=== PATIENT | female | born 1955 | race Caucasian/White ===

== ENCOUNTER 2017-05-18 14:19 | Day surgery (SDC) | payer BC ==
[~2017-05-18] VITALS: Ht 162.6 cm; Wt 123.4 kg
[~2017-05-18 14:19] MED LIST: GUMMI BEAR MUL1 EACH PO; HYZAAR 100-11 TABLET PO
[2017-05-18 14:42] VITALS: BP 139/54
[2017-05-18] MEDS ORDERED: ALEVE220 M2 PO (14:55)
[2017-05-18 15:04] VITALS: BP 139/54
[2017-05-18] MEDS ORDERED: HYDROCODON-ACE1 EAC7 PO (17:12)
[2017-05-18 17:35] VITALS: BP 171/73
[2017-05-18 18:28] VITALS: BP 140/65
== END 2017-05-18 18:33 | disposition home or self-care (01) ==
LOC: SDC 14:19
PROC: 0W9F0ZZ Drainage of Abdominal Wall, Open Approach (ICD-10-PCS; principal; 2017-05-18)
DX: T81.89XA Other complications of procedures, not elsewhere classified, initial encounter (principal); T81.4XXA Infection following a procedure, initial encounter; I10 Essential (primary) hypertension; M19.90 Unspecified osteoarthritis, unspecified site; Z80.0 Family history of malignant neoplasm of digestive organs
CPT/HCPCS: 80048; 85025; 85610; 85730; J0690; J2250; J3010